=== PATIENT | female | born 1940 | race Caucasian/White ===

== ENCOUNTER 2017-07-10 07:24 | Day surgery (SDC) | payer MEDICARE, OTHER ==
--- NOTE | 2017-07-09 13:39 | PREOPHP ---
DATE OF ADMISSION: 07/10/2017 HISTORY OF PRESENT ILLNESS: This 77-year-old patient is admitted for elective cataract surgery of t he left eye. This patient has had decrease in vision, and 1 year ago underwent cataract surgery of the right eye with excellent visual recovery. Patient now has decrease of vision in the left eye. No prior history of eye disease or injury. The patient does have a positive systemic history of juan betes mellitus, systemic hypertension, hypercholesterolemia and depression. MEDICATIONS: Includes: 1. Atorvastatin. 2. Amlodipine. 3. Benazepril. 4. Chlorthalidone. 5. Doxazosin. 6. Metoprolol. 7. Aspirin 81 mg (discontinued 1 week prior to surgery). ALLERGIES: THE PATIENT IS ALLERGIC TO PENICILLIN. PHYSICAL EXAMINATION: The visual acuity best corrected is 20/25 in the right eye and 20/80 in the l eft eye. There is ptosis of the right upper eyelid lid. Slit lamp examination reveals a posterior chamber intraocular lens in the right eye and an anterior cortical nuclear sclerotic and posterior s ubcapsular cataract in the left eye. Applanation tonometry is 15 mmHg. Examination of the retina d oes not find the presence of any diabetic retinopathy in the left eye. DIAGNOSIS: Cataract, left eye. PLAN: Cataract extraction with lens implant, left eye. The risks and alternatives to the surgery h ave been discussed with the patient, and patient has opted to proceed with surgery in hopes of impro ving visual acuity leading to greater ability to perform activities of daily living. Dictated By: ANGIE FRANZ/MARK Conf#: [id number] DID#: [id number]
[~2017-07-10] VITALS: Ht 152.4 cm; Wt 105.6 kg
[~2017-07-10 07:24] MED LIST: ASPI-535; BENA40TA41; GLIP-95; METO-448; PARO30TA68; PIOG45TA6; SIMV5TAB50; SITA50TA2
[2017-07-10] MEDS ORDERED: ONDANSETRON 4 MG INJ ONE (08:26)
[2017-07-10] MEDS ORDERED: DEXAMETHASONE 4 MG/ML 1 ML INJ ONE (08:27)
[2017-07-10 08:28] VITALS: Ht 152.4 cm; Wt 105.6 kg
[2017-07-10 08:29] VITALS: BP 148/65; PULSE 67; RESP 16
[2017-07-10] MEDS ORDERED: METO200T6 PO (08:33)
[2017-07-10] MEDS ORDERED: ATOR80TA75 PO (08:34)
[2017-07-10] MEDS ORDERED: PARO40TA48 PO (08:34)
[2017-07-10] MEDS ORDERED: DOXA4TAB3 PO (08:35)
[2017-07-10] MEDS ORDERED: AMLO5TAB4 PO (08:35)
[2017-07-10] MEDS ORDERED: PROPOFOL 20 ML ONE (08:35)
[2017-07-10] MEDS ORDERED: morphine 10 MG INJ ONE (08:35)
[2017-07-10] MEDS ORDERED: BENA40TA41 PO (08:36)
[2017-07-10] MEDS ORDERED: CHLO25TA13 PO (08:37)
[2017-07-10] MEDS ORDERED: FURO-109 PO (08:37)
[2017-07-10] MEDS ORDERED: ASPI-664 PO (08:37)
[2017-07-10] MEDS ORDERED: NOVO7030 SC (08:40)
[2017-07-10] MEDS ORDERED: CIPROFLOXACIN 0.3% 2.5 ML OPH OPER SCH (09:00)
[2017-07-10] MEDS ORDERED: INSULIN ASPART [NOVOLOG] 3 ML PEN SC ONE (09:00)
[2017-07-10] MEDS ORDERED: DICLOFENAC 0.1% 2.5 ML OPH OPER SCH (09:00)
[2017-07-10] MEDS ORDERED: TROPICAMIDE 1% 3ML OPH OPER SCH (09:00)
[2017-07-10] MEDS ORDERED: CYCLOPENTOLATE/PHENYLEPH 2 ML OPH OPER SCH (09:00)
[2017-07-10] MEDS ORDERED: SOD CHLORIDE 0.9% 1,000 ML IV SCH (09:00)
[2017-07-10 10:31] VITALS: BP 150/70; PULSE 71; RESP 18
== END 2017-07-10 10:25 | disposition home or self-care (01) ==
LOC: SDS 07:24 → MERGE 10:30
PROVIDERS: ATTEND Ophthalmology
DX: H25.12 Age-related nuclear cataract, left eye (principal); I10 Essential (primary) hypertension; E11.9 Type 2 diabetes mellitus without complications; Z53.8 Procedure and treatment not carried out for other reasons
CPT/HCPCS: 82962; J1100; J1815; J2270; J2405